=== PATIENT | female | born 1965 | race Caucasian/White ===

== ENCOUNTER 2019-06-07 13:03 | Outpatient (CLI) | payer MEDICARE, SELFPAY ==
--- NOTE | 2019-06-07 13:15 | XR_ITS ---
WS: [id number] DEXA (DUAL ENERGY X-RAY ABSORPTIOMETRY) Bone mineral density was performed using a [employer] machine. HISTORY: POST MENOPAUSAL COMPARISON: None available. Lumbar spine BMD (L1-L4): 1.049 g/cm2 T score: -1.1 Z score: -0.5 Total hip BMD: Left: 0.868 g/cm2. T score: -1.1 Z score: -0.6 Right: 0.894 g/cm2. T score: -0.9 Z score: -0.4 10 year probability of a major osteoporotic fracture is 7%. XR/XR DEXA axial skeleton* [id number] IMPRESSION: OSTEOPENIA based upon the WHO classification for females.
--- NOTE | 2019-06-07 14:09 | MM_ITS ---
WS: [id number] BILATERAL DIGITAL SCREENING MAMMOGRAPHY WITH CAD CLINICAL INFORMATION: SCREENING HISTORY: Screening mammogram. No current complaints. COMPARISON: None. TECHNIQUE: Bilateral CC and MLO views. FINDINGS: The breasts are composed of heterogeneous fibroglandular density tissue, which can limit the detectio n of small underlying mass lesions. 4 mm asymmetric density outer right breast best seen on the cc vi ew. Recommend spot compression views and ultrasound for further evaluation. Left breast appears unremarkable . MM/[place] [id number] IMPRESSION: BI-RADS: 0-Incomplete: Need additional imaging evaluation FOLLOW UP: Need Additional Imaging
== END 2019-06-07 13:04 | disposition home or self-care (01) ==
PROVIDERS: Family Provider Family Medicine; PCP Family Medicine; Referring Provider Family Medicine; Visit Provider Nurse Practitioner Family
DX: Z78.0 Asymptomatic menopausal state (principal); Z12.31 Encounter for screening mammogram for malignant neoplasm of breast
CPT/HCPCS: 77067; 77080

== ENCOUNTER → 2019-09-21 08:05 | Outpatient (BNVA) | payer MEDICARE, SELFPAY | PROVIDERS: Family Provider Family Medicine; PCP Family Medicine; Visit Provider Nurse Practitioner | DX: F34.1 Dysthymic disorder (principal); F42.9 Obsessive-compulsive disorder, unspecified; F41.1 Generalized anxiety disorder; F40.10 Social phobia, unspecified; F32.9 Major depressive disorder, single episode, unspecified; G47.00 Insomnia, unspecified | CPT/HCPCS: 99214 ==

== ENCOUNTER → 2019-11-09 07:39 | Outpatient (BNVA) | payer MEDICARE, SELFPAY | PROVIDERS: Family Provider Family Medicine; PCP Family Medicine; Visit Provider Nurse Practitioner | DX: F40.10 Social phobia, unspecified (principal); F41.1 Generalized anxiety disorder; F42.9 Obsessive-compulsive disorder, unspecified; F34.1 Dysthymic disorder; G47.00 Insomnia, unspecified; F32.9 Major depressive disorder, single episode, unspecified | CPT/HCPCS: 99213 ==

== ENCOUNTER 2019-11-18 07:37 | Outpatient (CLI) | payer MEDICARE, SELFPAY ==
--- NOTE | 2019-11-18 08:30 | MM_ITS ---
WS: [id number] RIGHT DIGITAL MAMMOGRAPHY WITH CAD CLINICAL INFORMATION: nodule, pain COMPARISON: June 07, 2019 TECHNIQUE: 6 views of the right breast were obtained. FINDINGS: Scattered fibroglandular densities of the right breast. Again seen is the 4 mm asymmetric density upp er outer right breast best seen on the cc view. This persists on spot compression views. Ultrasound i s pending. ULTRASOUND BREAST RIGHT TECHNIQUE: Ultrasound right breast focused area of concern. CLINICAL INFORMATION: nodule, pain COMPARISON: None. FINDINGS: Ultrasound right breast obtained at the 10:00 position. A few tiny hypoechoic lesions likely tiny cys ts are visualized. These measure only 2 to 3 mm in size. No suspicious mass or lesion. No lesions to target for biopsy. Recommend return to annual screening mammography. MM/[place] [id number] IMPRESSION: BI-RADS: 2-Benign FOLLOW UP: 1 Year Follow-up Recommend return to annual screening mammography.
--- NOTE | 2019-11-18 09:30 | US_ITS ---
WS: [id number] RIGHT DIGITAL MAMMOGRAPHY WITH CAD CLINICAL INFORMATION: nodule, pain COMPARISON: June 07, 2019 TECHNIQUE: 6 views of the right breast were obtained. FINDINGS: Scattered fibroglandular densities of the right breast. Again seen is the 4 mm asymmetric density upp er outer right breast best seen on the cc view. This persists on spot compression views. Ultrasound i s pending. ULTRASOUND BREAST RIGHT TECHNIQUE: Ultrasound right breast focused area of concern. CLINICAL INFORMATION: nodule, pain COMPARISON: None. FINDINGS: Ultrasound right breast obtained at the 10:00 position. A few tiny hypoechoic lesions likely tiny cys ts are visualized. These measure only 2 to 3 mm in size. No suspicious mass or lesion. No lesions to target for biopsy. Recommend return to annual screening mammography. US/US breast RT limited* [id number] IMPRESSION: BI-RADS: 2-Benign FOLLOW UP: 1 Year Follow-up Recommend return to annual screening mammography.
== END 2019-11-18 07:38 | disposition home or self-care (01) ==
LOC: RADSHAW 07:43
PROVIDERS: PCP Family Medicine; Visit Provider Nurse Practitioner Family
DX: N63.11 Unspecified lump in the right breast, upper outer quadrant (principal); N64.4 Mastodynia
CPT/HCPCS: 76642; 77065

== ENCOUNTER 2019-12-06 15:27 | Outpatient (CLI) | payer MEDICARE, SELFPAY ==
--- NOTE | 2019-12-06 16:00 | MR_ITS ---
WS: [id number] MRI LEFT KNEE NONCONTRAST TECHNIQUE: Axial PD, coronal PD fat sat, coronal PD, sagittal PD, and sagittal PD fat-sat images obta ined. CLINICAL INFORMATION: M25.569 Pain in unspecified knee COMPARISON: None. FINDINGS: Distal quadriceps and patella tendons are intact. Normal ACL and PCL. No evidence of high-grade injur y. Chronic thinning of the medial and lateral meniscus. No acute appearing meniscal tears. Small amou nt of chronic intrasubstance signal abnormality involving the posterior horn medial meniscus. Hypertrophic patella. Moderate chondromalacia patella. No subchondral edema. Small popliteal cyst. MC L and LCL appear intact. Moderate to advanced narrowing of the medial joint compartment with near [id number] articulation an d subchondral cystic change involving the femoral condyle and lateral tibial plateau with adjacent ed donovan. MR/MR knee LT wo con* [id number] IMPRESSION: 1. Normal ACL and PCL. 2. Chronic thinning of the medial lateral meniscus. No acute appearing menisca l tears. 3. Chronic thinning of the medial meniscus with near [id number] articulation . Subchondral edema and degenerative cystic change involving the medial tibial plateau and adjacent femoral condyle. 4. Moderate abnormal aeration patella. 5. Small popliteal cyst measuring 8 x 6 x 15 mm
== END 2019-12-06 15:28 | disposition home or self-care (01) ==
LOC: RADSHAW 15:32
PROVIDERS: PCP Family Medicine; Visit Provider Family Medicine
DX: M25.562 Pain in left knee (principal); M71.22 Synovial cyst of popliteal space [Baker], left knee; R63.5 Abnormal weight gain
CPT/HCPCS: 73721; 80053; 84439; 84443

== ENCOUNTER → 2019-12-27 10:56 | Outpatient (BNVA) | payer MEDICARE, SELFPAY | PROVIDERS: PCP Family Medicine; Referring Provider Family Medicine; Visit Provider Orthopaedic Surgery | DX: M17.12 Unilateral primary osteoarthritis, left knee (principal) | CPT/HCPCS: 73560; 73565 ==

== ENCOUNTER → 2020-01-10 09:10 | Outpatient (BNVA) | payer MEDICARE, SELFPAY | PROVIDERS: PCP Family Medicine; Visit Provider Nurse Practitioner | DX: F41.1 Generalized anxiety disorder (principal); F40.10 Social phobia, unspecified; F42.9 Obsessive-compulsive disorder, unspecified; F34.1 Dysthymic disorder; G47.00 Insomnia, unspecified; F32.9 Major depressive disorder, single episode, unspecified | CPT/HCPCS: 99213 ==

== ENCOUNTER → 2020-02-23 09:27 | Outpatient (BNVA) | payer MEDICARE, SELFPAY | PROVIDERS: PCP Family Medicine; Visit Provider Orthopaedic Surgery | DX: Z11.59 Encounter for screening for other viral diseases (principal) | CPT/HCPCS: 87635 ==

== ENCOUNTER → 2020-04-05 08:18 | Outpatient (BNVA) | payer MEDICARE, SELFPAY | PROVIDERS: PCP Family Medicine; Visit Provider Nurse Practitioner | DX: F41.1 Generalized anxiety disorder (principal); F42.9 Obsessive-compulsive disorder, unspecified; F40.10 Social phobia, unspecified; F34.1 Dysthymic disorder; G47.00 Insomnia, unspecified | CPT/HCPCS: 99213 ==

== ENCOUNTER → 2020-04-17 10:59 | Outpatient (BNVA) | payer MEDICARE, SELFPAY | PROVIDERS: PCP Family Medicine; Visit Provider Orthopaedic Surgery | DX: Z20.828 Contact with and (suspected) exposure to other viral communicable diseases (principal); Z01.812 Encounter for preprocedural laboratory examination | CPT/HCPCS: 87635 ==

== ENCOUNTER → 2020-06-18 11:40 | Outpatient (BNVA) | payer MEDICARE, SELFPAY | PROVIDERS: PCP Family Medicine; Visit Provider Family Medicine | DX: M54.9 Dorsalgia, unspecified (principal); K20.90 Esophagitis, unspecified without bleeding; M47.816 Spondylosis without myelopathy or radiculopathy, lumbar region | CPT/HCPCS: 72100 ==

== ENCOUNTER → 2020-07-03 07:43 | Outpatient (BNVA) | payer MEDICARE, SELFPAY | PROVIDERS: PCP Family Medicine; Visit Provider Nurse Practitioner | DX: F42.9 Obsessive-compulsive disorder, unspecified (principal); F34.1 Dysthymic disorder; F41.1 Generalized anxiety disorder; F40.10 Social phobia, unspecified | CPT/HCPCS: 99214 ==

== ENCOUNTER → 2020-08-01 11:26 | Outpatient (BNVA) | payer MEDICARE, SELFPAY | PROVIDERS: PCP Family Medicine; Visit Provider Internal Medicine | DX: Z01.812 Encounter for preprocedural laboratory examination (principal); Z20.822 Contact with and (suspected) exposure to COVID-19 | CPT/HCPCS: 87635 ==

== ENCOUNTER → 2020-09-04 09:30 | Outpatient (BNVA) | payer MEDICARE, SELFPAY | PROVIDERS: PCP Family Medicine; Visit Provider Nurse Practitioner Family | DX: S60.10XA Contusion of unspecified finger with damage to nail, initial encounter (principal); X58.XXXA Exposure to other specified factors, initial encounter | CPT/HCPCS: 73140 ==

== ENCOUNTER → 2020-09-27 08:17 | Outpatient (BNVA) | payer MEDICARE, SELFPAY | PROVIDERS: PCP Family Medicine; Visit Provider Nurse Practitioner | DX: F40.10 Social phobia, unspecified (principal); F41.1 Generalized anxiety disorder; F42.9 Obsessive-compulsive disorder, unspecified; F34.1 Dysthymic disorder; G47.00 Insomnia, unspecified | CPT/HCPCS: 99214 ==

== ENCOUNTER → 2020-12-20 07:06 | Outpatient (BNVA) | payer MEDICARE, SELFPAY | PROVIDERS: PCP Family Medicine; Visit Provider Nurse Practitioner | DX: F32.9 Major depressive disorder, single episode, unspecified (principal); F41.1 Generalized anxiety disorder; F42.9 Obsessive-compulsive disorder, unspecified; F34.1 Dysthymic disorder; F40.10 Social phobia, unspecified; G47.00 Insomnia, unspecified | CPT/HCPCS: 99214 ==

== ENCOUNTER → 2021-02-05 08:43 | Outpatient (BNVA) | payer MEDICARE, SELFPAY | PROVIDERS: PCP Family Medicine; Visit Provider Family Medicine | DX: E78.5 Hyperlipidemia, unspecified (principal) | CPT/HCPCS: 80053; 80061 ==

== ENCOUNTER → 2021-02-20 11:23 | Outpatient (BNVA) | payer MEDICARE, SELFPAY | PROVIDERS: PCP Family Medicine; Visit Provider Internal Medicine | DX: Z01.812 Encounter for preprocedural laboratory examination (principal); R10.9 Unspecified abdominal pain; Z20.822 Contact with and (suspected) exposure to COVID-19 | CPT/HCPCS: 87635 ==

== ENCOUNTER 2021-02-25 07:51 | Day surgery (SDC) | payer MEDICARE, SELFPAY ==
[2021-02-22 09:52] VITALS: BMI 21.5
[2021-02-25 08:10] VITALS: BP 135/84; PULSE 75; RESP 18; TEMP 36.7; O2SAT 97
[2021-02-25] MEDS: sodium chloride 0.9% 1,000 ML 30 ML IV (08:38)
--- NOTE | 2021-02-25 09:11 | P.HP_ITS ---
Same Day Surgery H&P Indication for Procedure/HPI DATE OF PROCEDURE: February 25, 2021 CHIEF COMPLAINT/INDICATIONFOR SURGICAL PROCEDURE: Frequent heartburn PREOP DIAGNOSIS: post prandial epigastric pain PLANNED PROCEDRUE: Operation Date: 02/25/21 09:30 Proposed Procedures p EGD 10477 R10.9(Not Applicable) - Arcadio Quesada MD Medications/Allergies* Allergies/Adverse Reactions Allergy/AdvReac Type Severity Reaction Status Date / Time morphine Allergy Intermediate vomiting Verified 02/20/21 10:34 Penicillins Allergy Intermediate rash Verified 02/20/21 10:34 Sulfa (Sulfonamide Allergy rash Verified 02/20/21 10:34 Antibiotics) Current Medications: Generic Name Dose Route Start Last Admin Trade Name Freq PRN Reason Stop Dose Admin Sodium Chloride 1,000 mls @ 30 mls/hr 02/25/21 08:00 02/25/21 08:38 Sodium Chloride 0.9% IV 30 mls/hr .Q24H NADER Administration Pertinent History/Comorbid Conditions* Medical History (Updated 02/04/21 @ 11:42 by Mir Kline DO) Abnormal Pap smear of cervix Anxiety Depressed Dysthymic disorder Generalized anxiety disorder Hyperlipidemia Insomnia Obsessive compulsive disorder Restless leg Social phobia, unspecified Social History Smoking and tobacco status: current every day smoker cigarettes Packs smoked per day: 0.5 Alcohol intake: never History of recent travel: No Pertinent Exam Findings alert, oriented x 3, clear to auscultation bilaterally, regular rate & rhythm, operative site marked and procedure specific exam findings Recommendations Surgery/Procedure today Coding Level of Care Code Acute Clinical Quality Assurance Associate for Corey Cruz
--- NOTE | 2021-02-25 09:11 | ANES.PREANE2 ---
Pre-Anesthetic Assessment Pre-Anesthetic Assessment: Height/Weight: Height 1.78 m Weight 68.039 kg Temp Pulse Resp BP Pulse Ox 98.0 F 75 18 135/84 97 02/25/21 08:10 02/25/21 08:10 02/25/21 08:10 02/25/21 08:10 02/25/21 08:10 Preop Diagnosis: post prandial epigastric pain Proposed Procedure: Operation Date: 02/25/21 09:30 Proposed Procedures p EGD 29377 R10.9(Not Applicable) - Arcadio Quesada MD Was Beta Aric taken within 24 hours: N/A Was Clonidine taken within 24 hours: Yes Last intake: Intake Last Liquid Date 02/24/21 Last Liquid Time 19:00 Last Solid Date 02/24/21 Last Solid Time 12:00 Last Intake: 19:00 Social: Social History: Tobacco and No alcohol Packs per day: 0.5 Pack years: 20+ Exam: Pre-Anes Outpt Exam: alert, oriented x 3, clear to auscultation bilaterally and regular rate & rhythm Airway: Submandibular: WNL Cervical ROM: WNL MP: 2 Dentition: False Pulmonary: Pulmonary: None reported CV/HEM: CV/HEM: HTN : : None reported Hepatic: Hepatic: None reported GI: GI: GERD Metabolic: Metabolic: None reported Musc/skel: Musc/skel: Lower Back Pain and OA/DJD Neuropsych: Neuropsych: Anxiety and Depression Anesthetic Plan: ASA status: 2 Anesthesia: MAC Risk of > 500 ml blood loss (7ml/kg in children): No Meds/Allergies Current Medications: Current Medications Generic Name Dose Route Start Last Admin Trade Name Freq PRN Reason Stop Dose Admin Sodium Chloride 1,000 mls @ 30 ml s/hr 02/25/21 08:00 02/25/21 08:38 Sodium Chloride 0.9% IV 30 mls/hr .Q24H NADER Administration PFSH Anesthesia PFSH: Medical History Abnormal Pap smear of cervix Anxiety Depressed Dysthymic disorder Generalized anxiety disorder Hyperlipidemia Insomnia Obsessive compulsive disorder Restless leg Social phobia, unspecified Social History Smoking and tobacco status: current every day smoker cigarettes Packs smoked per day: 0.5 Alcohol intake: never History of recent travel: No Female Reproductive History: Date of last menstrual period: 08/07/04 Data Anesthesia Cardiac Studies: No Data to Display
[2021-02-25 10:14] VITALS: BP 104/72; PULSE 77; RESP 16; TEMP 36.8; O2SAT 92
--- NOTE | 2021-02-25 10:16 | PM.PACU ---
PACU note Post-Anesthesia Exam: awake and vital signs stable Disposition: discharged
[2021-02-25 10:25] VITALS: BP 111/77; PULSE 72; RESP 16; O2SAT 94
[2021-02-26 11:20] LABS: H. Pylori / CLO Test Negative
== END 2021-02-25 10:35 | disposition home or self-care (01) ==
PROVIDERS: PCP Family Medicine; Visit Provider Internal Medicine
PROC: 0DJ08ZZ Inspection of Upper Intestinal Tract, Via Natural or Artificial Opening Endoscopic (ICD-10-PCS; CPT 43235; principal; 2021-02-25 09:30)
DX: R10.13 Epigastric pain (principal); K29.70 Gastritis, unspecified, without bleeding; F41.9 Anxiety disorder, unspecified; F32.9 Major depressive disorder, single episode, unspecified; E78.5 Hyperlipidemia, unspecified; F17.210 Nicotine dependence, cigarettes, uncomplicated; I10 Essential (primary) hypertension; K21.9 Gastro-esophageal reflux disease without esophagitis
CPT/HCPCS: 43239; 87077; 96360; 96361; J2704; J7030

== ENCOUNTER → 2021-03-14 07:51 | Outpatient (BNVA) | payer MEDICARE, SELFPAY | PROVIDERS: PCP Family Medicine; Visit Provider Nurse Practitioner | DX: F32.9 Major depressive disorder, single episode, unspecified (principal); F41.1 Generalized anxiety disorder; F40.10 Social phobia, unspecified; F42.9 Obsessive-compulsive disorder, unspecified; G47.00 Insomnia, unspecified; F34.1 Dysthymic disorder | CPT/HCPCS: 99214 ==

== ENCOUNTER 2021-03-27 08:58 | Outpatient (CLI) | payer MEDICARE, MEDICAID, SELFPAY ==
--- NOTE | 2021-03-27 09:30 | MR_ITS ---
WS: [id number] MRI/MRCP OF THE ABDOMEN WITHOUT GADOLINIUM ENHANCEMENT TECHNIQUE: Thin and thick slab MRCP, Axial T2, Coronal MRCP, Axial Dual Echo, and Axial 2-D Fiesta imaging was obtained. Coronal 2-D Fiesta imaging. CLINICAL INFORMATION: post prandial abdominal pain. COMPARISON: None. FINDINGS: Prior postoperative changes cholecystectomy. Normal liver. No intrahepatic bile duct dilatation. Norm al spleen. Adrenal glands are normal. Normal renal parenchymal enhancement. No hydronephrosis. Normal common bile duct. No evidence of choledocholithiasis. Pancreatic head is normal. Normal pancreatic p arenchyma. Normal portal vein and splenic vein. Celiac and SMA are patent. Normal caliber abdominal aorta. MR/MR MRCP [id number] Impression: 1. Prior cholecystectomy. 2. No evidence of choledocholithiasis. Normal common bile duct. 3. Normal pancreatic duct. 4. No intrahepatic biliary ductal dilatation. 5. Pancreatic head is normal. Normal pancreatic parenchyma. 6. No hydronephrosis in either kidney. 7. No other significant findings.
== END 2021-03-27 08:59 | disposition home or self-care (01) ==
LOC: RADSHAW 09:01
PROVIDERS: PCP Family Medicine; Visit Provider Internal Medicine
DX: R10.9 Unspecified abdominal pain (principal); Z90.49 Acquired absence of other specified parts of digestive tract
CPT/HCPCS: 74181

== ENCOUNTER 2021-03-27 09:14 | Outpatient (CLI) | payer MEDICARE, MEDICAID, SELFPAY ==
--- NOTE | 2021-03-27 10:30 | MM_ITS ---
WS: [id number] BILATERAL SCREENING DIGITAL MAMMOGRAM WITH CAD HISTORY: Z12.31 - Encounter for screening mammogram for malignancy... COMPARISON: 11/18/2019 and 06/07/2019 Bilateral CC and MLO views submitted. Computer aided detection analyzed. Breast composition: There are scattered areas of fibroglandular density. No suspicious masses, microc alcifications or architectural distortion. MM/[place] [id number] IMPRESSION: BI-RADS: 1-Negative FOLLOW UP: 1 Year Follow-up
== END 2021-03-27 09:15 | disposition home or self-care (01) ==
LOC: RADSHAW 09:14
PROVIDERS: PCP Family Medicine; Visit Provider Family Medicine
DX: Z12.31 Encounter for screening mammogram for malignant neoplasm of breast (principal)
CPT/HCPCS: 77067

== ENCOUNTER → 2021-05-07 09:12 | Outpatient (BNVA) | payer MEDICARE, MEDICAID, SELFPAY | PROVIDERS: PCP Family Medicine; Visit Provider Family Medicine | DX: R74.8 Abnormal levels of other serum enzymes (principal) | CPT/HCPCS: 80053 ==

== ENCOUNTER → 2021-06-06 07:34 | Outpatient (BNVA) | payer MEDICARE, MEDICAID, SELFPAY | PROVIDERS: PCP Family Medicine; Visit Provider Nurse Practitioner | DX: F32.9 Major depressive disorder, single episode, unspecified (principal); F41.1 Generalized anxiety disorder; F42.9 Obsessive-compulsive disorder, unspecified; F34.1 Dysthymic disorder; G47.00 Insomnia, unspecified | CPT/HCPCS: 99214 ==

== ENCOUNTER → 2021-07-02 11:55 | Outpatient (BNVA) | payer MEDICARE, MEDICAID, SELFPAY | PROVIDERS: PCP Family Medicine; Visit Provider Nurse Practitioner Family | DX: R74.8 Abnormal levels of other serum enzymes (principal) | CPT/HCPCS: 82977 ==

== ENCOUNTER → 2021-07-09 10:44 | Outpatient (BNVA) | payer MEDICARE, MEDICAID, SELFPAY | PROVIDERS: PCP Family Medicine; Visit Provider Nurse Practitioner Family | DX: M89.8X9 Other specified disorders of bone, unspecified site (principal); R74.8 Abnormal levels of other serum enzymes; Z86.2 Personal history of diseases of the blood and blood-forming organs and certain disorders involving the immune mechanism | CPT/HCPCS: 82306; 82310; 83970; 84075; 85025 ==

== ENCOUNTER 2021-07-22 06:00 | Outpatient (RCR) | payer MEDICARE, MEDICAID, SELFPAY | END 2021-07-22 23:59 | disposition home or self-care (01) | LOC: GPT 06:00 | PROVIDERS: PCP Family Medicine; Referring Provider Nurse Practitioner Family; Visit Provider Nurse Practitioner Family | DX: M79.622 Pain in left upper arm (principal); M79.10 Myalgia, unspecified site | CPT/HCPCS: 97110; 97162 ==

== ENCOUNTER 2021-07-23 06:00 | Outpatient (RCR) | payer MEDICARE, SELFPAY | END 2021-08-22 23:59 | disposition home or self-care (01) | LOC: GPT 06:00 | PROVIDERS: PCP Family Medicine; Referring Provider Nurse Practitioner Family; Visit Provider Nurse Practitioner Family | DX: M79.622 Pain in left upper arm (principal); M79.10 Myalgia, unspecified site | CPT/HCPCS: 97110 ==

== ENCOUNTER 2021-07-25 11:01 | Outpatient (CLI) | payer MEDICARE, MEDICAID, SELFPAY ==
--- NOTE | 2021-07-25 11:45 | US_ITS ---
WS: [id number] RIGHT UPPER QUADRANT ULTRASOUND HISTORY: R74.8 - Abnormal levels of other serum enzymes COMPARISON: None available. Liver: 14.1 cm in length. Normal size liver. No bile duct dilatation or mass. Portal Vein: Normal hepatopetal flow with monophasic waveform. Gallbladder: Gallbladder not identified. Prior cholecystectomy. CBD: 0.6 cm, top normal size. Pancreas: Normal size and echogenicity. Right kidney: 9.6 cm in length. Normal size and echogenicity. No hydronephrosis or mass. Aorta and IVC: Unremarkable abdominal aorta and IVC. No ascites. US/US liver [id number] IMPRESSION: 1. Prior cholecystectomy. 2. Normal liver. 3. No bile duct dilatation.
== END 2021-07-25 11:02 | disposition home or self-care (01) ==
PROVIDERS: PCP Family Medicine; Visit Provider Nurse Practitioner Family
DX: R74.8 Abnormal levels of other serum enzymes (principal); Z90.49 Acquired absence of other specified parts of digestive tract
CPT/HCPCS: 76705

== ENCOUNTER 2021-08-28 07:17 | Outpatient (CLI) | payer MEDICARE, SELFPAY ==
--- NOTE | 2021-08-28 08:00 | NM_ITS ---
WS: [id number] NUCLEAR MEDICINE GASTRIC STUDY CLINICAL INFORMATION: R10.9 - Unspecified abdominal pain TECHNIQUE: Following oral ingestion of cooked egg mixed with 1.1 mCi technetium 99m sulfur colloid, a nterior images of the stomach were obtained over the course of 90 minutes. Activity curve was perform ed over the course of 90 minutes with linear regression analysis. COMPARISON: None. FINDINGS: Oral ingestion of cooked egg mixture with technetium 99m sulfur colloid. Calculated T1 half 150 minutes (normal 45 to 110 minutes) Only 3% emptying at 60 minutes. 39% emptying at 120 minutes. (60% retention at 2 hours) NM/NM gastric emptying st [id number] IMPRESSION: Delayed gastric emptying. *Normal median T1 half 90 minutes for solid egg meal (45-110 minutes). Delayed gastric retention is defined as 90% retained at 1 hour, 60% at 2 hour s, 30% at 3 hours, and 10% at 4 hours (normal percent gastric retention is 37-9 0% at 1 hour, 30-60% at 2 hours, and 0-10% at 4 hours).
== END 2021-08-28 07:18 | disposition home or self-care (01) ==
LOC: RAD 07:18
PROVIDERS: PCP Family Medicine; Visit Provider Surgery
DX: R10.9 Unspecified abdominal pain (principal); R11.10 Vomiting, unspecified
CPT/HCPCS: 78264; A9541

== ENCOUNTER 2021-09-06 09:29 | Outpatient (CLI) | payer MEDICARE, SELFPAY ==
--- NOTE | 2021-09-06 10:45 | FL_ITS ---
WS: [id number] Upper GI with air-contrast and small bowel follow-through, 09/06/2021 Clinical Data: R10.9 - Unspecified abdominal pain Comparison: None. Fluoroscopy time: 2.0 minutes # of spot films: 15 Findings: The patient swallowed the barium, and it flowed normally through the hypopharynx into the esophagus. No hiatal hernia, reflux, esophagitis, mass, polyp or erosion was seen. The barium passed into the stomach which was well distended and free of ulcer or deformity. No extrin sic mass could be seen. The barium then passed into the duodenal bulb which was well-distended and free of ulceration. The re mainder of the duodenum filled normally.. The jejunum and ileum were not remarkable. The terminal ileum is minimally patulous but there is no e vidence of any obstruction. The barium then flowed into the cecum and ascending colon. No evidence of any small bowel mass or obs truction could be seen. FL/FL upper GI smallbowel series Impression: Negative upper GI series with small bowel follow-through.
== END 2021-09-06 09:30 | disposition home or self-care (01) ==
PROVIDERS: PCP Family Medicine; Visit Provider Surgery
DX: R10.9 Unspecified abdominal pain (principal); R11.10 Vomiting, unspecified
CPT/HCPCS: 74240; 74248

== ENCOUNTER → 2021-09-10 07:22 | Outpatient (BNVA) | payer MEDICARE, SELFPAY | PROVIDERS: PCP Family Medicine; Visit Provider Nurse Practitioner | DX: F41.1 Generalized anxiety disorder (principal); F42.9 Obsessive-compulsive disorder, unspecified; F34.1 Dysthymic disorder | CPT/HCPCS: 99214 ==

== ENCOUNTER → 2021-09-11 16:06 | Outpatient (BNVA) | payer MEDICARE, SELFPAY | PROVIDERS: PCP Family Medicine; Visit Provider Surgery | DX: R19.4 Change in bowel habit (principal) ==

== ENCOUNTER 2021-11-21 06:56 | Day surgery (SDC) | payer MEDICARE, SELFPAY ==
[2021-11-19 11:04] VITALS: BMI 17.9
[2021-11-21 07:15] VITALS: BP 109/66; PULSE 53; RESP 16; TEMP 36.6; O2SAT 98
[2021-11-21] MEDS: sodium chloride 0.9% 1,000 ML 30 ML IV (07:26)
--- NOTE | 2021-11-21 07:47 | W.PM.OPSFHP ---
Same Day Surgery H&P Indication for Procedure/HPI DATE OF PROCEDURE: November 21, 2021 CHIEF COMPLAINT/INDICATIONFOR SURGICAL PROCEDURE: Change in bowel habits PREOP DIAGNOSIS: post prandial epigastric pain PLANNED PROCEDURE: Operation Date: 11/21/21 08:30 Proposed Procedures p Colonoscopy 03962/R19.4 change in bowl habits(Not Applicable) - Brandin Han MD 08/19/2021 This is a pleasant 55 years old female patient referred to my practice with a broad spectrum of GI symptomatology including but not limited to epigastric pain being dull referred to the back.? Worse with food and gets better without eating.? Patient also reports heartburn for the past 20 years and postprandial fullness in addition to regurgitation of food.? She does have alternating diarrhea and constipation and she did undergo an EGD back in February [address] Quesada and did demonstrate gastritis.? And was told at the time that she does have hiatal hernia.? Patient updated on her colonoscopies per her description. Interim history 11/21/2021 patient undergone upper GI study with small bowel follow-through that showed Negative upper GI series with small bowel follow-through. Patient comes today for diagnostic colonoscopy because of change in bowel habit and continues to have upper abdominal pain, she has been updated on colonoscopy per her description but I do not see any reporting of colonoscopies done recently. Over the past few years. ROS All systems have been reviewed negative except as for the above or per problem list. Medications/Allergies* Home Medications Medication Instructions Recorded Confirmed Type dicyclomine 20 mg tablet 20 mg PO TID PRN 04/30/21 11/21/21 History clonidine HCl 0.1 mg tablet 0.1 mg PO DAILY 11/20/21 11/21/21 History methocarbamol 750 mg tablet 750 mg PO TID PRN 11/20/21 11/21/21 History ropinirole 1 mg tablet 1 mg PO TID 11/20/21 11/21/21 History Allergies/Adverse Reactions Allergy/AdvReac Type Severity Reaction Status Date / Time morphine Allergy Intermediate vomiting Verified 11/21/21 07:54 Penicillins Allergy Intermediate rash Verified 11/21/21 07:54 Sulfa (Sulfonamide Allergy rash Verified 11/21/21 07:54 Antibiotics) Current Medications: Generic Name Dose Route Start Last Admin Trade Name Freq PRN Reason Stop Dose Admin Sodium Chloride 1,000 mls @ 30 mls/hr 11/21/21 07:15 11/21/21 07:26 Sodium Chloride 0.9% IV 11/22/21 07:14 30 mls/hr .Q24H NADER Administration Pertinent History/Comorbid Conditions* Medical History (Updated 08/21/21 @ 10:01 by Brandin Han MD) Abnormal Pap smear of cervix Anxiety Depressed Dysthymic disorder Generalized anxiety disorder Hyperlipidemia Insomnia Obsessive compulsive disorder Psychiatric care Restless leg Social phobia, unspecified Social History Smoking and tobacco status: current every day smoker cigarettes Packs smoked per day: 0.5 Alcohol intake: never History of recent travel: No Pertinent Exam Findings alert, oriented x 3, regular rate & rhythm and procedure specific exam findings (Abdominal examination nontender nondistended soft) Recommendations Surgery/Procedure today (Colonoscopy with possible biopsy) Other Plans: Plan of care; After thorough history and physical examination and reviewing the chart, plan to perform diagnostic colonoscopy. I discussed with the patient in details the risks,benefits,alternatives and indications.The risk of aspiration, bleeding, soft tissue injury, perforation of the colon and other potential concomitant complications were explained to the patient in details,also the potential need for Laproscoy/Laparotomy to repair any related complications including but not limited to colectomy and or Closotomy.The patient understood this well and did agree to proceed. Rationale was carefully and clearly discussed with the patient.Appropriate informed consent have been reviewed and signed All questions have been answered and all concerns have been addressed to patient's satisfaction. Verbal and written Instructions were given to the patient for colonoscopy prep Coding Level of Care Code Acute Life Science Taxonomist for Corey Cruz
--- NOTE | 2021-11-21 07:50 | ANES.PREANE2 ---
Documented by User: Amari Gates CRNA 11/21/21 07:54 Pre-Anesthetic Assessment Height/Weight: Height 1.78 m Weight 56.699 kg Temp Pulse Resp BP Pulse Ox 97.9 F 53 L 16 109/66 98 11/21/21 07:15 11/21/21 07:15 11/21/21 07:15 11/21/21 07:15 11/21/21 07:15 Preop Diagnosis: post prandial epigastric pain Operation Date: 11/21/21 08:30 Proposed Procedures p Colonoscopy 51073/R19.4 change in bowl habits(Not Applicable) - Brandin Han MD Familial anesthetic complications: none Was Beta Aric taken within 24 hours: N/A Was Clonidine taken within 24 hours: Yes Last intake: Intake Last Liquid Date 11/20/21 Last Liquid Time 19:00 Last Solid Date 11/20/21 Last Solid Time 10:00 Social Tobacco 10 cigs/day pack(s) per day Exam alert, oriented x 3, clear to auscultation bilaterally and regular rate & rhythm Airway Submandibular: within normal limits Cervical ROM: within normal limits Mallampati: Class I Dentition: false History/ROS Other Pulmonary None reported CV/HEM None reported None reported Hepatic None reported GI Gastroesophageal Reflux Disease (controlled most of the time) Metabolic Hyperlipidemia Musc/skel Lower Back Pain and Scoliosis Neuropsych Anxiety, Bipolar and Depression Anesthetic Plan ASA status: 2 Anesthesia: MAC Risk of > 500 ml blood loss (7ml/kg in children): No Medications/Allergies Home Medications Medication Instructions Recorded Confirmed Last Taken Type pantoprazole 40 mg tablet,delayed 40 mg PO DAILY #90 tab 02/25/21 11/21/21 11/21/21 Rx release dicyclomine 20 mg tablet 20 mg PO TID PRN 04/30/21 11/21/21 11/21/21 History atorvastatin 40 mg tablet 40 mg PO DAILY #30 tab 08/14/21 11/21/21 11/21/21 Rx alprazolam 1 mg tablet 1 mg PO TID PRN #90 tab 09/02/21 11/21/21 11/20/21 Rx duloxetine 60 mg capsule,delayed 60 mg PO BID #60 cap 09/02/21 11/21/21 11/21/21 Rx release trazodone 150 mg tablet 150 mg PO .HS #30 tab 09/02/21 11/21/21 08/23/21 Rx clonidine HCl 0.1 mg tablet 0.1 mg PO DAILY 11/20/21 11/21/21 11/21/21 History methocarbamol 750 mg tablet 750 mg PO TID PRN 11/20/21 11/21/21 Unknown History ropinirole 1 mg tablet 1 mg PO TID 11/20/21 11/21/21 11/20/21 History Allergies Allergy/AdvReac Type Severity Reaction Status Date / Time morphine Allergy Intermediate vomiting Verified 11/21/21 07:54 Penicillins Allergy Intermediate rash Verified 11/21/21 07:54 Sulfa (Sulfonamide Allergy rash Verified 11/21/21 07:54 Antibiotics) Current Medications Generic Name Dose Route Start Last Admin Trade Name Freq PRN Reason Stop Dose Admin Sodium Chloride 1,000 mls @ 30 mls/hr 11/21/21 07:15 11/21/21 07:26 Sodium Chloride 0.9% IV 11/22/21 07:14 30 mls/hr .Q24H NADER Administration PFSH Anesthesia Medical History Abnormal Pap smear of cervix Anxiety Depressed Dysthymic disorder Generalized anxiety disorder Hyperlipidemia Insomnia Obsessive compulsive disorder Psychiatric care Restless leg Social phobia, unspecified Social History Smoking and tobacco status: current every day smoker cigarettes Packs smoked per day: 0.5 Alcohol intake: never History of recent travel: No Female Reproductive History Date of last menstrual period: 08/07/04 Data Anesthesia Cardiac Studies: No Data to Display
[2021-11-21 08:46] VITALS: BP 101/65; PULSE 53; RESP 16; TEMP 36.2; O2SAT 97
--- NOTE | 2021-11-21 08:50 | ANE.PACU2 ---
Documented by User: Aye Lowery CRNA 11/21/21 08:50 Inpatient post-anesthesia follow up: Airway intact: Yes Vital signs: Temperature 97.2 F Pulse Rate 53 Respiratory Rate 16 Blood Pressure 101/65 Pulse Oximetry 97 Oxygen Delivery Me thod Room Air Oxygen Flow Rate Fraction of Inspir ed Oxygen Hydration adequate: Yes Nausea and vomiting: No Pain level: 1 Mental status: Baseline
[2021-11-21 08:56] VITALS: BP 110/73; PULSE 55; RESP 16; O2SAT 95
[2021-11-21 09:05] VITALS: BP 107/67; PULSE 61; RESP 16; O2SAT 97
[2021-11-21 09:38] LABS: Alanine Aminotransferase 7 U/L (0-33); Albumin Level 3.5 g/dL (3.5-5.2); Alkaline Phosphatase 94 IU/L (35-105); Aspartate Amino Transferase 12 U/L (0-32); Globulin 1.8 g/dL (1.3-4.6); Total Bilirubin 0.3 mg/dL (0.15-1.2); Total Protein 5.3 g/dL (6.6-8.7)
== END 2021-11-21 09:15 | disposition home or self-care (01) ==
PROVIDERS: PCP Family Medicine; Visit Provider Surgery
PROC: 0DJD8ZZ Inspection of Lower Intestinal Tract, Via Natural or Artificial Opening Endoscopic (ICD-10-PCS; CPT 45378; principal; 2021-11-21 08:30)
DX: R19.4 Change in bowel habit (principal); F17.210 Nicotine dependence, cigarettes, uncomplicated; K21.9 Gastro-esophageal reflux disease without esophagitis; E78.5 Hyperlipidemia, unspecified; F41.9 Anxiety disorder, unspecified; F32.9 Major depressive disorder, single episode, unspecified; F41.1 Generalized anxiety disorder
CPT/HCPCS: 36415; 45378; 80076; J2704; J7030

== ENCOUNTER → 2021-11-28 16:00 | Outpatient (BNVA) | payer MEDICARE, SELFPAY | PROVIDERS: PCP Family Medicine; Visit Provider Surgery | DX: K59.00 Constipation, unspecified (principal); Z09 Encounter for follow-up examination after completed treatment for conditions other than malignant neoplasm | CPT/HCPCS: 99212 ==

== ENCOUNTER → 2022-03-11 10:19 | Outpatient (BNVA) | payer MEDICARE, SELFPAY | PROVIDERS: PCP Family Medicine; Visit Provider Orthopaedic Surgery | DX: M25.562 Pain in left knee (principal) | CPT/HCPCS: 73560; 73565; 99213 ==

== ENCOUNTER 2022-04-14 09:26 | Outpatient (CLI) | payer MEDICARE, MEDICAID, SELFPAY ==
--- NOTE | 2022-04-14 10:15 | MR_ITS ---
WS: [id number] MRI LUMBAR SPINE NONCONTRAST TECHNIQUE: Sagittal T1, T2 and STIR imaging. Axial T1 and T2 imaging. CLINICAL INFORMATION: low back pain COMPARISON: None. FINDINGS: Mild lumbar curve. No acute compression. No high-grade central canal stenosis. Tarlov cysts in the sa talha. L1-L2: Mild facet arthropathy. Spinal canal and foramen are patent. L2-L3: Mild annular bulging. Mild facet arthropathy. Spinal canal and foramen are patent. L3-L4: Mild annular bulging. Slight effacement of ventral thecal sac. Moderate facet arthropathy. Mil d LEFT and no significant RIGHT foraminal narrowing. L4-L5: Mild annular bulging. Slight effacement of the ventral thecal sac. Slight narrowing of the LEF T subarticular recess. Small RIGHT greater than LEFT foraminal protrusions with contact of the exitin g L4 nerve roots bilaterally. Mild bilateral foraminal narrowing. Moderate facet arthropathy. L5-S1: Mild annular bulging. Tiny annular tear. Slight effacement of ventral thecal sac. Spinal canal and foramen are patent. Moderate facet arthropathy. Visualized pelvic bony structures: Normal. Paravertebral soft tissues: Normal. MR/MR lumbar spine wo con* [id number] IMPRESSION: 1. Mild lumbar curve. No acute compression. No high-grade central canal stenos is. 2. Small bilateral foraminal protrusion L4-L5 with small annular fissures and slight impingement on the exiting L4 nerve roots bilaterally. 3. Mild annular bulge L5-S1 with a tiny annular fissure. Slight effacement of ventral thecal sac. 4. Moderate facet arthropathy L3-L5. 5. Incidental Tarlov cysts in the sacrum.
== END 2022-04-14 09:27 | disposition home or self-care (01) ==
LOC: RAD 09:27
PROVIDERS: PCP Family Medicine; Visit Provider Orthopaedic Surgery
DX: M51.26 Other intervertebral disc displacement, lumbar region (principal); G96.191 Perineural cyst
CPT/HCPCS: 72148

== ENCOUNTER → 2022-04-22 14:53 | Outpatient (BNVA) | payer MEDICARE, MEDICAID, SELFPAY | PROVIDERS: PCP Family Medicine; Visit Provider Physician Assistant | DX: M47.816 Spondylosis without myelopathy or radiculopathy, lumbar region (principal); G96.191 Perineural cyst; M51.36 Other intervertebral disc degeneration, lumbar region | CPT/HCPCS: 72110; 99203 ==

== ENCOUNTER 2022-05-02 05:52 | Day surgery (SDC) | payer MEDICARE, MEDICAID, SELFPAY ==
[2022-04-30 08:13] VITALS: BMI 20.9
[2022-05-02 06:10] VITALS: BP 144/90; PULSE 92; RESP 18; TEMP 36.5; O2SAT 95
[2022-05-02] MEDS: sodium chloride 0.9% 1,000 ML 30 ML IV (06:23)
--- NOTE | 2022-05-02 06:35 | P.HP_ITS ---
Same Day Surgery H&P Indication for Procedure/HPI DATE OF PROCEDURE: May 02, 2022 CHIEF COMPLAINT/INDICATIONFOR SURGICAL PROCEDURE: Abdominal pain PREOP DIAGNOSIS: Change in bowel habits PLANNED PROCEDURE: Operation Date: 05/02/22 07:30 Proposed Procedures p Colonoscopy 57367,K59.00(Not Applicable) - Brandin Han MD 08/19/2021 This is a pleasant 55 years old female patient referred to my practice with a broad spectrum of GI symptomatology including but not limited to epigastric pain being dull referred to the back.? Worse with food and gets better without eating.? Patient also reports heartburn for the past 20 years and postprandial fullness in addition to regurgitation of food.? She does have alternating diar jose d and constipation and she did undergo an EGD back in February [address] Quesada and did demonstrate gastritis.? And was told at the time that she does have hiatal hernia.? Patient updated on her colonoscopies per her description. Interim history 11/21/2021 ?patient undergone upper GI study with small bowel follow-through that showed? Negative upper GI series with small bowel follow-through. Patient comes today for diagnostic colonoscopy because of change in bowel habit and continues to have upper abdominal pain, she has been updated on colonoscopy per her description but I do not see any reporting of colonoscopies done recently.? Over the past few years. 05/02/2022 Patient comes today for repeat colonoscopy as her prep last time was inadequate, undergone an upper GI study small bowel follow-through that showed negative studies, gastric emptying study showed delayed gastric emptying. Patient reports to me back in 2009 had a colonoscopy about 6-7 polyps were removed. ROS All systems have been reviewed negative except as for the above or per problem list. Medications/Allergies* Home Medications Medication Instructions Recorded Confirmed Type dicyclomine 20 mg tablet 20 mg PO TID PRN heartburn 04/30/21 05/02/22 History Allergies/Adverse Reactions Allergy/AdvReac Type Severity Reaction Status Date / Time morphine Allergy Intermediate vomiting Verified 05/02/22 06:36 Penicillins Allergy Intermediate rash Verified 05/02/22 06:36 Sulfa (Sulfonamide Allergy rash Verified 05/02/22 06:36 Antibiotics) Current Medications: Generic Name Dose Route Start Last Admin Trade Name Freq PRN Reason Stop Dose Admin Sodium Chloride 1,000 mls @ 30 mls/hr 05/02/22 06:15 05/02/22 06:23 Sodium Chloride 0.9% IV 05/03/22 06:14 30 mls/hr .Q24H NADER Administration Pertinent History/Comorbid Conditions* Medical History (Updated 04/22/22 @ 15:44 by Yovani Li PA-C) Abnormal Pap smear of cervix Anxiety Depressed Dysthymic disorder Generalized anxiety disorder Hyperlipidemia Insomnia Obsessive compulsive disorder Psychiatric care Restless leg Social phobia, unspecified Social History Smoking and tobacco status: current every day smoker cigarettes Packs smoked per day: 0.5 Alcohol intake: never History of recent travel: No Pertinent Exam Findings alert, oriented x 3, regular rate & rhythm and procedure specific exam findings (Abdominal exam nontender nondistended soft) Recommendations Surgery/Procedure today (Colonoscopy with possible biopsy) Coding Level of Care Code Acute [employer] for [employer]
--- NOTE | 2022-05-02 06:57 | ANES.PREANE2 ---
Pre-Anesthetic Assessment Height/Weight: Height 1.8 m Weight 68.039 kg Temp Pulse Resp BP Pulse Ox O2 Del Method 97.7 F 92 18 144/90 95 05/02/22 06:10 05/02/22 06:10 05/02/22 06:10 05/02/22 06:10 05/02/22 06:10 05/02/22 06:10 Preop Diagnosis: Change in bowel habits Operation Date: 05/02/22 07:30 Proposed Procedures p Colonoscopy 37122,K59.00(Not Applicable) - Brandin Han MD Familial anesthetic complications: none Was Beta Aric taken within 24 hours: N/A Was Clonidine taken within 24 hours: Yes Last intake: Intake Last Liquid Date 05/01/22 Last Liquid Time 18:00 Last Solid Date 04/30/22 Last Solid Time 11:00 Last Intake: 18:00 Social Tobacco and No alcohol 1ppd pack(s) per day 30+ pack years Exam alert, oriented x 3, clear to auscultation bilaterally and regular rate & rhythm Airway Submandibular: within normal limits Cervical ROM: within normal limits Mallampati: Class I Dentition: false Pulmonary Chronic Obstructive Pulmonary Disease CV/HEM Hypertension None reported Hepatic None reported GI Gastroesophageal Reflux Disease (controlled) Metabolic None reported Musc/skel Lower Back Pain and Osteoarthritis/DJD Neuropsych Anxiety and Depression Anesthetic Plan ASA status: 2 Anesthesia: MAC Risk of > 500 ml blood loss (7ml/kg in children): No Medications/Allergies Home Medications Medication Instructions Recorded Confirmed Last Taken Type dicyclomine 20 mg tablet 20 mg PO TID PRN heartburn 04/30/21 05/02/22 05/01/22 History atorvastatin 40 mg tablet 40 mg PO DAILY #30 tabs 08/14/21 05/02/22 05/01/22 Rx lactulose 10 gram/15 mL oral See Rx Instructions .Route 12/02/21 05/02/22 05/01/22 Rx solution (Constulose) .COMPLEX #210 mL pantoprazole 40 mg tablet,delayed 40 mg PO DAILY #90 tabs 03/04/22 05/02/22 05/01/22 Rx release alprazolam 1 mg tablet 1 mg PO TID PRN anxiety #90 tabs 03/11/22 05/02/22 05/01/22 Rx clonidine HCl 0.1 mg tablet 0.1 mg PO .HS #30 tabs 03/11/22 05/02/22 05/01/22 Rx duloxetine 60 mg capsule,delayed 60 mg PO BID #60 caps 03/11/22 05/02/22 05/01/22 Rx release trazodone 150 mg tablet 150 mg PO .HS #30 tabs 03/11/22 05/02/22 05/01/22 Rx ropinirole 1 mg tablet See Rx Instructions .Route 04/23/22 05/02/22 05/01/22 Rx .COMPLEX #90 tabs Allergies Allergy/AdvReac Type Severity Reaction Status Date / Time morphine Allergy Intermediate vomiting Verified 05/02/22 06:36 Penicillins Allergy Intermediate rash Verified 05/02/22 06:36 Sulfa (Sulfonamide Allergy rash Verified 05/02/22 06:36 Antibiotics) Current Medications Generic Name Dose Route Start Last Admin Trade Name Freq PRN Reason Stop Dose Admin Sodium Chloride 1,000 mls @ 30 mls/hr 05/02/22 06:15 05/02/22 06:23 Sodium Chloride 0.9% IV 05/03/22 06:14 30 mls/hr .Q24H NADER Administration PFSH Anesthesia Medical History Abnormal Pap smear of cervix Anxiety Depressed Dysthymic disorder Generalized anxiety disorder Hyperlipidemia Insomnia Obsessive compulsive disorder Psychiatric care Restless leg Social phobia, unspecified Social History Smoking and tobacco status: current every day smoker cigarettes Packs smoked per day: 0.5 Alcohol intake: never History of recent travel: No Female Reproductive History Date of last menstrual period: 08/07/04 Data Anesthesia Cardiac Studies: No Data to Display
[2022-05-02 07:44] VITALS: BP 133/82; PULSE 66; RESP 16; TEMP 36.5; O2SAT 98
[2022-05-02 07:54] VITALS: BP 128/79; PULSE 66; RESP 18; O2SAT 97
--- NOTE | 2022-05-02 15:30 | ANE.PACU2 ---
Inpatient post-anesthesia follow up: Airway intact: Yes Vital signs: Temperature 97.7 F Pulse Rate 66 Respiratory Rate 18 Blood Pressure 128/79 Pulse Oximetry 97 Oxygen Delivery Me thod Room Air Oxygen Flow Rate Fraction of Inspir ed Oxygen Hydration adequate: Yes Nausea and vomiting: No Pain level: 1 Mental status: Baseline
== END 2022-05-02 08:10 | disposition home or self-care (01) ==
PROVIDERS: PCP Family Medicine; Visit Provider Surgery
PROC: 0DJD8ZZ Inspection of Lower Intestinal Tract, Via Natural or Artificial Opening Endoscopic (ICD-10-PCS; CPT 45378; principal; 2022-05-02 07:30)
DX: R19.4 Change in bowel habit (principal); E78.5 Hyperlipidemia, unspecified; F17.210 Nicotine dependence, cigarettes, uncomplicated; J44.9 Chronic obstructive pulmonary disease, unspecified; I10 Essential (primary) hypertension; K21.9 Gastro-esophageal reflux disease without esophagitis
CPT/HCPCS: 45378; J2704; J7030

== ENCOUNTER → 2022-05-15 11:33 | Outpatient (BNVA) | payer MEDICARE, MEDICAID, SELFPAY | PROVIDERS: PCP Family Medicine; Visit Provider Surgery | DX: Z09 Encounter for follow-up examination after completed treatment for conditions other than malignant neoplasm (principal); Q43.8 Other specified congenital malformations of intestine | CPT/HCPCS: 99212 ==

== ENCOUNTER 2022-07-21 14:49 | Outpatient (CLI) | payer MEDICARE, SELFPAY ==
--- NOTE | 2022-07-21 14:57 | CT_ITS ---
WS: [email or web address] CT LUMBAR SPINE TECHNIQUE: Noncontrast CT of the lumbar spine with coronal and sagittal reformatted images. CLINICAL INFORMATION: DEGENERATIVE LUMBAR DISC COMPARISON: MRI April 14, 2022 DLP: 464.[address] scans at [facility] use at least one of these dose optimization techniques: automated e xposure control; mA and/or kV adjustment per patient size (includes targeted exams where dose is matc hed to clinical indication); or iterative reconstruction. FINDINGS: Mild lumbar curve. No acute compression. No high-grade central canal stenosis. L1-L2: Normal. L2-L3: Mild annular bulging. Mild facet arthropathy. Spinal canal and foramen are patent. L3-L4: Mild annular bulging. Slight effacement of the ventral thecal sac. Tiny LEFT foraminal protrus ion with mild LEFT foraminal narrowing. Slight narrowing of the subarticular recess bilaterally. Mild facet arthropathy. L4-L5: Mild annular bulging with slight narrowing of the subarticular recess bilaterally LEFT greater than RIGHT. Mild central canal stenosis. Mild RIGHT greater than LEFT foraminal narrowing. Moderate facet arthropathy with ligamentum flavum hypertrophy. Disc bulging at this level appears slightly pro gressed compared to previous. L5-S1: Mild annular bulging with slight contact of the traversing LEFT greater than RIGHT S1 nerve ro ots. Spinal canal and foramen are patent. Mild facet arthropathy. Lung bases are well aerated. Adrenal glands are normal. Cholecystectomy clips. Stable appearing Tarlo v cyst in the sacrum. CT/CT lumbar spine wo con* [id number] IMPRESSION: 1. Mild annular bulging L4-L5 with mild central canal stenosis appears progres sed compared to previous. Slight impingement traversing L5 nerve roots bilatera lly. 2. Mild RIGHT greater than LEFT L4-L5 foraminal narrowing. 3. Small central disc protrusion L5-S1 slightly contacts the traversing LEFT g reater than RIGHT S1 nerve roots. 4. Small LEFT foraminal protrusion L3-L4 slightly contacts the exiting LEFT L3 nerve root.
== END 2022-07-21 14:50 | disposition home or self-care (01) ==
LOC: RAD 14:51
PROVIDERS: PCP Family Medicine; Visit Provider Neurological Surgery
DX: M51.36 Other intervertebral disc degeneration, lumbar region (principal)
CPT/HCPCS: 72131

== ENCOUNTER → 2022-08-01 14:50 | Outpatient (BNVA) | payer MEDICARE, MEDICAID, SELFPAY | PROVIDERS: PCP Family Medicine; Visit Provider Nurse Practitioner Family | DX: Z12.4 Encounter for screening for malignant neoplasm of cervix (principal); E78.5 Hyperlipidemia, unspecified | CPT/HCPCS: 80053; 80061; 88175 ==

== ENCOUNTER 2022-08-26 13:55 | Outpatient (CLI) | payer MEDICARE, MEDICAID, SELFPAY ==
--- NOTE | 2022-08-26 14:08 | MM_ITS ---
WS: [email or web address] BILATERAL 3D TOMOSYNTHESIS DIGITAL SCREENING MAMMOGRAPHY WITH CAD CLINICAL INFORMATION: SCREENING HISTORY: Screening mammogram. No current complaints. COMPARISON: March 27, 2021 TECHNIQUE: Bilateral CC and MLO views. FINDINGS: Scattered fibroglandular densities bilaterally. No suspicious focal mass, asymmetry, calcifications, or architectural distortion. No evidence of malignancy. MM/[place] [id number] IMPRESSION: BI-RADS: 1-Negative FOLLOW UP: 1 Year Follow-up Recommend return to annual screening mammography.
== END 2022-08-26 13:56 | disposition home or self-care (01) ==
LOC: RAD 13:58
PROVIDERS: PCP Family Medicine; Visit Provider Family Medicine
DX: Z12.31 Encounter for screening mammogram for malignant neoplasm of breast (principal)
CPT/HCPCS: 77063; 77067

== ENCOUNTER 2023-09-09 13:31 | Outpatient (CLI) | payer MEDICARE, MEDICAID, SELFPAY ==
--- NOTE | 2023-09-09 14:00 | MM_ITS ---
WS: [email or web address] BILATERAL 3D TOMOSYNTHESIS DIGITAL SCREENING MAMMOGRAPHY WITH CAD CLINICAL INFORMATION: SCREENING HISTORY: Screening mammogram. No current complaints. COMPARISON: 08/26/2022 TECHNIQUE: Bilateral CC and MLO views. FINDINGS: Scattered fibroglandular densities bilaterally. No suspicious focal mass, asymmetry, calcifications, or architectural distortion. No evidence of malignancy. Nodular parenchymal tissue upper outer RIGHT breast unchanged since 2020. This was previously evaluated. IMPRESSION: MM/[place] [id number] BI-RADS: 2-Benign FOLLOW UP: 1 Year Follow-up Recommend return to annual screening mammography.
== END 2023-09-09 13:32 | disposition home or self-care (01) ==
LOC: MOBLMAM 13:37
PROVIDERS: PCP Internal Medicine; Visit Provider Internal Medicine
DX: Z12.31 Encounter for screening mammogram for malignant neoplasm of breast (principal)
CPT/HCPCS: 77063; 77067

== ENCOUNTER 2024-10-11 13:54 | Outpatient (CLI) | payer MEDICARE, MEDICAID, SELFPAY ==
[2024-04-06 11:55] VITALS: BP 138/80; BMI 20.5
--- NOTE | 2024-10-11 14:00 | MM_ITS ---
WS: [email or web address] BILATERAL 3D TOMOSYNTHESIS DIGITAL SCREENING MAMMOGRAPHY WITH CAD CLINICAL INFORMATION: SCREENING HISTORY: Screening mammogram. No current complaints. COMPARISON: 2023 TECHNIQUE: Bilateral CC and MLO views. FINDINGS: Scattered fibroglandular densities bilaterally. No suspicious focal mass, asymmetry, calcifications, or architectural distortion. No evidence of malignancy. MM/MM scr BI tomosynthesis [id number] IMPRESSION: DENSITY: There are scattered areas of fibroglandular density. BI-RADS: 1 - Negative. FOLLOW UP: 1 Year Follow-up Recommend return to annual screening mammography.
== END 2024-10-11 13:55 | disposition home or self-care (01) ==
PROVIDERS: PCP Family Medicine; Visit Provider Family Medicine
DX: Z12.31 Encounter for screening mammogram for malignant neoplasm of breast (principal); R92.323 Mammographic fibroglandular density, bilateral breasts
CPT/HCPCS: 77063; 77067

== ENCOUNTER → 2024-10-13 11:28 | Outpatient (BNVA) | payer MEDICARE, MEDICAID, SELFPAY ==
[2024-04-06 11:55] VITALS: BP 138/80; BMI 20.5
== END ==
PROVIDERS: PCP Family Medicine; Referring Provider Nurse Practitioner Family; Visit Provider Specialist
DX: R20.2 Paresthesia of skin (principal)
CPT/HCPCS: 95910

== ENCOUNTER 2024-12-01 14:03 | Outpatient (CLI) | payer MEDICARE, SELFPAY ==
[2024-04-06 11:55] VITALS: BP 138/80; BMI 20.5
--- NOTE | 2024-12-01 14:09 | MR_ITS ---
WS: [email or web address] MRI pelvis without gadolinium enhancement. INDICATION: Chronic low back pain. Radiation to extremities. TECHNIQUE: Coronal T1 STIR axial T1 and T2 and sagittal T2 fat-sat FINDINGS: Normal bone marrow signal in the bony pelvis and sacrum. No sacral insufficiency fractures. Normal bone marrow signal in the distal sacrum and coccyx. 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 Mild disc bulging L4-5 described on the lumbar spine MRI. Mild degenerative narrowing both hips. No bone marrow edema or avascular necrosis. No inguinal lymphadenopathy. No other suspicious findings. MR/MR pelvis wo con* [id number] IMPRESSION: 1. Normal bone marrow signal in the bony pelvis and sacrum. 2. Mild degenerative arthritis both hips with normal bone marrow signal. 3. Mild disc bulging L4-5. 4. 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 5. No other acute findings.
--- NOTE | 2024-12-01 14:09 | MR_ITS ---
WS: [email or web address] MRI LUMBAR SPINE NONCONTRAST TECHNIQUE: Sagittal T1, T2 and STIR imaging. Axial T1 and T2 imaging. CLINICAL INFORMATION: OTHER DISORDERS OF MENINGES COMPARISON: Lumbar spine MRI 2021 FINDINGS: Mild lumbar curve. No acute compression. Prominent presumed Tarlov cyst of the RIGHT S1 nerve root is unchanged since 2021. Gadolinium not administered. L1-L2: Mild facet arthropathy. L2-L3: Minimal annular bulging. Mild facet arthropathy. Tiny RIGHT foraminal protrusion. Mild RIGHT foraminal narrowing. L3-L4: Mild annular bulging. Slight impingement on the subarticular recess and traversing L4 nerve roots bilaterally. Mild central canal stenosis. Disc bulging at this level has progressed compared to previous. Moderate facet arthropathy. Mild LEFT greater than RIGHT foraminal narrowing. L4-L5: Mild disc bulging with impingement RIGHT subarticular recess and traversing RIGHT L5 nerve root. New large RIGHT foraminal protrusion impinges the exiting RIGHT L4 nerve root with severe RIGHT foraminal narrowing. Mild LEFT foraminal narrowing. Moderate facet arthropathy. Mild central canal stenosis. L5-S1: Mild annular bulging. Tiny annular fissure. Moderate facet arthropathy. Slight impingement on the traversing LEFT greater than RIGHT S1 nerve roots. Foramen are patent. Visualized pelvic bony structures: Normal. Paravertebral soft tissues: Normal. MR/MR lumbar spine wo con* [id number] IMPRESSION: 1. Mild lumbar curve. No acute compression. 2. New large RIGHT L4-5 foraminal protrusion impinges the exiting RIGHT L4 ner ve root with severe RIGHT foraminal narrowing. 3. Annular bulging L3-4 has progressed with a small annular fissure and mild c entral canal stenosis. Impingement on the traversing RIGHT greater than LEFT L4 nerve roots. 4. Mild central canal stenosis L4-5 with progressed annular bulging. Impingeme nt on the traversing RIGHT greater than LEFT L5 nerve roots has progressed. 5. Mild annular bulging L5-S1 impinges the traversing LEFT greater than RIGHT S1 nerve roots with a small annular fissure. This is similar to previous. 6. Stable Tarlov cyst in the sacrum.
== END 2024-12-01 14:04 | disposition home or self-care (01) ==
LOC: RAD 14:04
PROVIDERS: PCP Family Medicine; Visit Provider Family Medicine
DX: G96.198 Other disorders of meninges, not elsewhere classified (principal); M16.0 Bilateral primary osteoarthritis of hip; M51.16 Intervertebral disc disorders with radiculopathy, lumbar region; G96.191 Perineural cyst; M47.896 Other spondylosis, lumbar region; M51.26 Other intervertebral disc displacement, lumbar region; M99.63 Osseous and subluxation stenosis of intervertebral foramina of lumbar region; M48.061 Spinal stenosis, lumbar region without neurogenic claudication; M51.A4 Intervertebral annulus fibrosus defect, small, lumbosacral region
CPT/HCPCS: 72148; 72195